=== PATIENT | female | born 1995 | race African-American/Black ===

== ENCOUNTER 2020-12-07 14:40 | Emergency (ER) | payer OTHER ==
[~2020-12-07] VITALS: Ht 172.7 cm; Wt 103.9 kg
[2020-12-07 14:54] VITALS: Ht 172.7 cm; Wt 103.9 kg
[2020-12-07 16:09] LABS: CALCIUM 9.4 mg/dL (8.5-10.1); CARBON DIOXIDE 23.2 mmol/L (21-32); CHLORIDE SERUM 105 mmol/L (98-107); CREATININE SERUM 0.7 mg/dL (0.6-1.0); GFR1 > 60 mL/min; GLUCOSE SERUM 90 mg/dL (74-106); POTASSIUM SERUM 4.4 mmol/L (3.5-5.1); SODIUM SERUM 140 mmol/L (136-145)
[2020-12-07 16:13] LABS: ALBUMIN 4.2 g/dL (3.4-5.0); ALKALINE PHOSPHATASE 89 U/L (46-116); ALT/SGPT 21 U/L (14-59); AST/SGOT 13 U/L (15-37); BILIRUBIN TOTAL 0.6 mg/dL (0.20-1.00); TOTAL PROTEIN, SERUM 7.5 g/dL (6.4-8.2)
[2020-12-07 16:18] LABS: BASOPHIL % 0.8 % (0.2-1.3); PLATELET COUNT 227 x10^3mcL (179-408); RED CELL DISTRIBUTION WIDTH 13.5 % (12.3-17.7)
[2020-12-07 18:29] LABS: microscopic required? NO
[2020-12-07 19:08] LABS: UA SPECIFIC GRAVITY 1.025 (1.005-1.035); urine erythrocyte NEGATIVE (NEGATIVE)
[2020-12-07 19:10] VITALS: BP 118/710
[2020-12-07 19:57] LABS: AMPHETAMINE QUAL UR NONE DETECTED (See below)
== END 2020-12-07 19:10 | disposition home or self-care (01) ==
LOC: ED 14:40
PROVIDERS: Emergency Medicine
DX: R42 Dizziness and giddiness (principal); R53.1 Weakness; R51.9 Headache, unspecified
CPT/HCPCS: J7030